=== PATIENT | female | born 1985 | race Asian ===

== ENCOUNTER 2024-05-29 07:25 | Outpatient (CLI) | payer OTHER, SELFPAY ==
--- NOTE | 2024-05-29 | ECHO_ITS ---
Patient Info Name: Kirsten Hinojosa Age: 38 years : 1985 Gender: Female Ht: 51 in Wt: 126 lbs BSA: 1.47 m2 HR: 79 bpm BP: 128 / 74 mmHg Technical Quality: Fair Exam Date: 05/29/2024 8:00 AM Exam Location: Echo Lab Patient Status: Outpatient Admit Date: 05/29/2024 Staff Ordering Physician: Vu Reyes MD Customer Care Assistant: Andrew Jones RDCS Attending Provider: Vu Reyes MD Referring Physician: Eric MOSQUEDA; Exam Type: CA echo doppler color flow Study Info Indications - cardiac murmur Complete two-dimensional, color flow and Doppler transthoracic echocardiogram is performed. Summary 1. Complete two-dimensional, color flow and Doppler transthoracic echocardiogram is performed. 2. Left ventricular chamber dimension is normal. 3. Left ventricular systolic function is normal, estimated at 60-65%. 4. The left ventricular diastolic function is normal. 5. E/e' 6 is not elevated. 6. There is trace tricuspid valve regurgitation. 7. RVSP is not calculated due to an inadequate TR jet. Left Ventricle E/e' 6 is not elevated. Left ventricular chamber dimension is normal. Left ventricular systolic function is normal, estimated at 60-65%. The left ventricular diastolic function is normal. Right Ventricle Right ventricular systolic function is normal and with normal TAPSE 2.3 cm. Right ventricular chamber dimension is normal. Left Atria Left atrial chamber dimension is normal. Right Atria Right atrial chamber dimension is normal. Aortic Valve The aortic valve is trileaflet. There is no aortic valve stenosis. There is no aortic valve regurgitation. Pulmonic Valve There is no pulmonic regurgitation. Mitral Valve There is no mitral valve stenosis. There is no mitral valve regurgitation. Tricuspid Valve There is trace tricuspid valve regurgitation. RVSP is not calculated due to an inadequate TR jet. Pericardium/Pleural There is no pericardial effusion. Inferior Vena Cava Normal inferior vena cava with >50% collapse upon inspiration consistent with normal right atrial pressure, 5 mmHg. Aorta The aortic root size at the sinus of Valsalva is normal. Left Ventricular Outflow Tract Name Value Normal LVOT 2D LVOT Diameter 1.8 cm LVOT Doppler LVOT Peak Gradient 7 mmHg LVOT Mean Gradient 4 mmHg LVOT VTI 31 cm LVOT VTI/AV VTI Ratio 1.0 LVOT Stroke Volume 76 ml LVOT CO 5.1 l/min LVOT CI 3.5 l/min/m2 Pulmonic Valve Name Value Normal RVOT Doppler RVOT Peak Gradient 5 mmHg PV Doppler PV Peak Gradient 7 mmHg Mitral Valve Name Value Normal MV Doppler MV Decel [place] 621 cm/s2 MV PHT 47 ms MV Area (PHT) 4.7 cm2 4.0-5.0 MV Diastolic Function MV E Peak Velocity 101 cm/s MV A Peak Velocity 66 cm/s MV E/A 1.5 MV Decel Time 162 ms MV Annular TDI MV E/e' (Septal) 9.2 <=8.0 MV E/e' (Lateral) 5.6 <=8.0 MV E/e' (Average) 7.4 Tricuspid Valve Name Value Normal Estimated PAP/RSVP RA Pressure 5 mmHg <=5 Aorta Name Value Normal Ascending Aorta Ao Root Diameter (MM) 2.6 cm Ao Root Diam Index (MM) 1.8 cm/m2 Aortic Valve Name Value Normal AV Doppler AV Peak Velocity 153 cm/s AV Peak Gradient 9 mmHg AV Mean Gradient 5 mmHg AV VTI 33 cm AV Area (Cont Eq VTI) 2.3 cm2 >=3.0 AV Area (Cont Eq Kirk) 2.1 cm2 AV Regurgitation 2D LVOT Area 2.4 cm2 Ventricles Name Value Normal LV Dimensions 2D/MM IVS Diastolic Thickness (2D) 0.9 cm 0.6-1.0 LVID Diastole (2D) 4.2 cm 3.8-5.2 LVIW Diastolic Thickness (2D) 0.9 cm 0.6-0.9 LVID Systole (2D) 2.6 cm 2.2-3.5 LVOT Diameter 1.8 cm LV Mass (2D Cubed) 115.61 g 67.00-162.00 LV Mass Index (2D Cubed) 79 g/m2 43-95 Relative Wall Thickness (2D) 0.42 LV Fractional Shortening/Ejection Fraction 2D/MM LV Fractional Shortening (2D) 37 % 27-45 LV EF (2D Teichadelaidaz) 67 % 54-74 LV Diastolic Volume (4C MOD) 75 ml LV EF (4C MOD) 79 % LV Diastolic Volume (2C MOD) 55 ml LV EF (2C MOD) 62 % LV Diastolic Volume (BP MOD) 65 ml 46-106 LV Diastolic Volume Index (BP MOD) 44 ml/m2 29-61 LV Systolic Volume (BP MOD) 19 ml 14-42 LV Systolic Volume Index (BP MOD) 13 ml/m2 8-24 LV EF (BP MOD) 71 % 54-74 LV Diastolic Length (4C) 6.8 cm LV Systolic Length (4C) 5.4 cm LV Stroke Volume (4C MOD) 59 ml Atria Name Value Normal LA Dimensions LA Dimension (MM) 2.5 cm 2.7-3.8 LA Volume (4C A-L) 30 ml LA Volume (BP A-L) 37 ml RA Dimensions RA Area (4C) 6.5 cm2 <=18.0 Report Signatures
--- OUTSIDE RECORDS SUMMARY | 2024-06-05 05:16 | XMS_ITS | Data Portability ---
Author Organization [facility] UMANGJeanne Robles Address [address] [place] [address] Assessment No assessment recorded. Plan of Treatment Reminders Order Date Submit Date Provider Last Modified By Organization Details Last Modified Time Details Appointments None recorde d. Lab urinaly sis, dipstic k 2020 021 [id number] In-Office Order, Internal Use Only DO Not Attach Compendium DO Not Attach Compendium, Do Not Delete/merge, [id number] 1 13:11:35 HbA1c (hemogl obin A1c), blood 2021 022 [facility], [address] [place] [address], [address], [place], [address], 2 04:20:22 lipid panel, serum 2022 023 [facility] [address] [facility], [place], [address], 3 17:50:31 HbA1c (hemogl obin A1c), blood 2022 023 [facility], [address] [facility] [address] [facility], [place], [address], 3 17:50:31 Referral physica l therapi st referra l - please evaluat e and treat, patient respond ed well to active myofasc ial release in clinic; discuss posture and stretch es/exer cises 2020 021 [facility] (Outpatient Physical Therapy), [address], [place], [address], 2 08:58:37 Procedures None recorde d. Surgeries None recorde d. Imaging None recorde d. Medication Orders Miralax 17 gram/do se oral powder 2021 022 [id number] [facility] [address] [place], [address], 3 17:22:04 Prepara tion H Hydroco rtisone 1 % topical cream 2021 022 [id number] [facility] [address] [place], [address], 3 17:22:06 clotrim azole 1 % topical cream [id number] [facility] [address] [place], [address], 2 17:10:06 omepraz ole 20 mg capsule ,delaye d release [id number] [place], [address], 3 17:22:00 Patient TargetsNo targets recorded. Patient Instructions Encounter Date Encounter Id Patient Instructions Last Modified By Organization Details Last Modified Time 05/15/2021 [id number] I was present and available in the Family Medicine clinic to discuss this patient's care during the appointment. I agree with the resident's assessment and plan as documented. [email or web address] Not available 05/15/2021 17:27:55 08/17/2021 [id number] I was present and available in the family medicine clinic to discuss the patient's care during the appointment and the case was discussed with me.?? I agree with the resident's assessment and plan as documented.?? HL [email or web address] Not available 08/20/2021 22:30:25 10/15/2021 [id number] hemorrhoids: care instructions [email or web address] Not available 10/15/2021 17:19:02 I was present and available in the Family Medicine clinic to discuss this patient's care for the duration of the appointment. I agree with the resident's assessment and plan as documented with the following addendum: None. Dr. Luis M Sheikh MD Faculty Physician, [facility] [email or web address] Not available 10/19/2021 11:33:55 03/26/2022 [id number] I was present and available in the family medicine clinic to discuss the patient's care during the appointment and the case was discussed with me.?? I agree with the resident's assessment and plan as documented.?? HL [email or web address] Not available 03/29/2022 15:11:53 11/04/2022 [id number] I was present and available in the Family Medicine clinic to discuss this patient's care for the duration of the appointment. I agree with the resident's assessment and plan as documented with the following addendum: None. Dr. Nevin Mackey MD Attending Physician, [facility]. [email or web address] Not available 11/22/2022 23:17:50 Reason for Referral Physical Therapist Referral for Spasm chronic pain/spasm of right trapezius, right neck, right lower back please evaluate and treat, patient responded well to active myofascial release in clinic; discuss posture and stretches/exercises Referring Physician: Ganga Marrero, Desktop Support Technician, Encounter Date: 05/15/2021 Results Created Date Observation Date Name Description Value Unit Range Abnormal Flag Note LastModifiedBy Organization Detail LastModifiedTime 05/15/2005/15/2021 urina lysis , dipst ick Leukocytes Negati ve Not Available In-Office Order Internal Use Only DO Not Attach Compendium DO Not Attach Compendium, Do Not Delete/merge, [id number] 05/15/2021 09:34:10 05/15/20 21 05/15/2021 urina lysis , dipst ick Nitrite negati ve Not Available In-Office Order Internal Use Only DO Not Attach Compendium DO Not Attach Compendium, Do Not Delete/merge, [id number] 05/15/2021 09:34:10 05/15/20 21 05/15/2021 urina lysis , dipst ick Urobilinogen .2 Not Available In-Of fice Order Internal Use Only DO Not Attach Compendium DO Not Attach Compendium, Do Not Delete/merge, [id number] 05/15/2021 09:34:10 05/15/20 21 05/15/2021 urina lysis , dipst ick Protein Negati ve Not Available In-Office Order Internal Use Only DO Not Attach Compendium DO Not Attach Compendium, Do Not Delete/merge, [id number] 05/15/2021 09:34:10 05/15/20 21 05/15/2021 urina lysis , dipst ick pH 6.5 Not Available In-Office Order Internal Use Only DO Not Attach Compendium DO Not Attach Compendium, Do Not Delete/merge, [id number] 05/15/2021 09:34:10 05/15/20 21 05/15/2021 urina lysis , dipst ick Blood Modera te Not Available In-Office Order Internal Use Only DO Not Attach Compendium DO Not Attach Compendium, Do Not Delete/merge, [id number] 05/15/2021 09:34:10 05/15/20 21 05/15/2021 urina lysis , dipst ick Specific [place] 1.010 Not Available In-Off ice Order Internal Use Only DO Not Attach Compendium DO Not Attach Compendium, Do Not Delete/merge, [id number] 05/15/2021 09:34:10 05/15/20 21 05/15/2021 urina lysis , dipst ick Ketone Negati ve Not Available In-Office Order Internal Use Only DO Not Attach Compendium DO Not Attach Compendium, Do Not Delete/merge, [id number] 05/15/2021 09:34:10 05/15/20 21 05/15/2021 urina lysis , dipst ick Bilirubin Negati ve Not Available In-Office Order Internal Use Only DO Not Attach Compendium DO Not Attach Compendium, Do Not Delete/merge, [id number] 05/15/2021 09:34:10 05/15/20 21 05/15/2021 urina lysis , dipst ick Glucose Negati ve Not Available In-Office Order Internal Use Only DO Not Attach Compendium DO Not Attach Compendium, Do Not Delete/merge, [id number] 05/15/2021 09:34:10 05/15/20 21 05/15/2021 urina lysis , dipst ick Appearance Clear Not Available In-Offi ce Order Internal Use Only DO Not Attach Compendium DO Not Attach Compendium, Do Not Delete/merge, [id number] 05/15/2021 09:34:10 05/15/20 21 05/15/2021 urina lysis , dipst ick Color Pale Yellow Not Available In-Office Order Internal Use Only DO Not Attach Compendium DO Not Attach Compendium, Do Not Delete/merge, [id number] 05/15/2021 09:34:10 10/29/19 22 10/29/2021 HEMOG LOBIN A1C hemoglobin A1C 5.4 % <5.7 ADA GUIDE LINES 2010 5.7 TO 6.4% INCRE ASED RISK OF DIABE LONNY > OR = 6.5% CONSI STENT WITH DIABE LONNY Not Available [facility] (Lab) [address] [facility], [place], [address], 10/29/2021 04:20:22 10/29/19 22 10/29/2021 HEMOG LOBIN A1C estimated average glucose, haydee 108 mg/dL Not Available [facility] (Lab) [address] [facility], [place], [address], 10/29/2021 04:20:22 06/16/19 22 nm hepat obili bora scan w/GB eject ion fract ion [facility] [id number] EXAMIN ATION: NUCLEA R MEDICI NE CHOLES CINTIG LINDSEY WITH EJECTI ON FRACTI ON ACCESS ION: [id number] EXAM DATE: 022 8:00 AM REASON FOR EXAM: Right sided abdomi nal pain COMPAR JUAN DIEGO: None TECHNI QUE: 4.9 millic uries techne tium 99m Cholet ec was inject ed intrav enousl y. Imagin g of the abdome n was obtain ed in anteri or projec tion over a one hour period . After confir enio small bowel activi ty, 8 ounces fatty meal of Ensure admini stered orally . Additi onal imagin g of the abdome n was obtain ed for evalua tion of ejecti on fracti on. FINDIN GS: Liver uptake is seen within 5 minute s. Gallbl adder uptake is seen within 15 minute s. Small bowel uptake is seen by 30 minute s. Gallbl adder ejecti on fracti on measur es 58 percen t. IMPRES CATRACHITA: 1. Normal hepato biliar y scinti graphy and ejecti on fracti on. 2. Gallbl adder ejecti on fracti on measur es 58 percen t. Ordere d By: ROCIO COLMENARES Electr onical ly Signed By: Rory Charles on 11:11 AM Interp reted By: Rory Charles, 11:[address], [address], 06/16/2021 13:08:10 Result Notes None recorded. Problems Name Problem SNOMED Code Status Onset Date Resolution Date Notes Provider Name and Address Organization Details Recorded Time Past history of gestational diabetes mellitus 807836576 Active 2020 JOHNNY Bejarano [facility] 2 14:04:40 Chronic pain 66117944 Completed 202003/24/2021 JOHNNY Bejarano - [facility] 1 16:36:28 Hemorrhoids 40945059 Active 2021 JOHNNY Bejarano [facility] 2 14:04:40 Gastroesoph ageal reflux disease 769638182 Active 2021 JOHNNY Beajrano [facility] 2 14:04:40 Problem Notes None recorded. Procedures Surgical History Date Name Laterality Status Provider Name and Address Organization Details Recorded Time 5 section completed Ganga TURNER - [facility] 11/04/2020 14:53:52 Imaging Results Imaging Date Name Status LastModified by Organization Details LastModified Time 06/16/2021 nm hepatobiliary scan w/GB ejection fraction completed [id number] [facility] [address], [place], [address], 06/16/2021 13:08:10 Procedure Notes None recorded. Medical Equipment None Reported. Allergies No known drug allergies Medications Name Sig Start Date Stop Date Status Note LastModified by Organization Details LastModified Time amoxicill in 500 mg capsule TAKE 2 CAPSULES BY MOUTH TWICE DAILY FOR 14 DAYS 10/15 completed Not Available Not Available Not Available Preparati on H Hydrocort isone 1 % topical cream APPLY A THIN LAYER TO THE AFFECTED AREA(S) BY TOPICAL ROUTE 2 TIMES PER DAY 11/04 completed Not Available Not Available Not Available Miralax 17 gram/dose oral powder Take 17 g every day by oral route. 11/04 completed Not Available Not Available Not Available clarithro mycin 500 mg tablet TAKE 1 TABLET BY MOUTH TWICE DAILY 10/15 completed Not Available Not Available Not Available omeprazol e 40 mg capsule,d elayed release TAKE 1 CAPSULE BY MOUTH ONCE DAILY BEFORE A MEAL 10/15 completed Not Available Not Available Not Available amoxicill in 875 mg tablet TAKE 1 TABLET BY MOUTH EVERY 12 HOURS UNTIL GONE 11/04 completed Not Available Not Available Not Available amitripty line 25 mg tablet Take 1 tablet every day by oral route in the evening for 30 days. 03/24 completed Stopped taking due to resoluti on of the pain. Not Available Not Available Not Available omeprazol e 20 mg capsule,d elayed release TAKE 1 CAPSULE BY MOUTH ONCE DAILY 11/04 completed Not Available Not Available Not Available clotrimaz ole 1 % topical cream APPLY TO THE AFFECTED AND SURROUND ING AREA(S) OF SKIN TWICE DAILY IN THE MORNING AND THE EVENING 10/15 completed Not Available Not Available Not Available dicyclomi ne 10 mg capsule 10/15 completed Not Available Not Available Not Available multivita min 11/04 completed Not Available Not Available Not Available Vitals Date Recorded Body height Body mass index (BMI) Body weight Body temperature Heart rate Oxygen saturation Oxygen saturation in Arterial blood by Pulse oximetry Systolic blood pressure Diastolic blood pressure Provider Name and Address Organization Details Last Updated DateTime 1 149.86 cm 24.1 kg/m2 51526.6 4 g 98.7 [degF] 73 /min 99 % 99 % 112 mm[Hg] 68 mm[Hg] Mague Kumar MA [place] - [facility] 1 09:09:09 Date Recorded Body height Heart rate Respiratory rate Body temperature Oxygen saturation Oxygen saturation in Arterial blood by Pulse oximetry Body mass index (BMI) Body weight Systolic blood pressure Diastolic blood pressure Provider Name and Address Organization Details Last Updated DateTime 2 149.86 cm 76 /min 18 /min 98.4 [degF] 98 % 98 % 23.9 kg/m2 67444.3 5 g 118 mm[Hg] 68 mm[Hg] Vinicius Ye MA [facility] 2 17:21:46 Date Recorded Body height Heart rate Oxygen saturation Oxygen saturation in Arterial blood by Pulse oximetry Body temperature Respiratory rate Body mass index (BMI) Body weight Systolic blood pressure Diastolic blood pressure Provider Name and Address Organization Details Last Updated DateTime 2 149.86 cm 67 /min 99 % 99 % 98.4 [degF] 18 /min 23.1 kg/m2 36774.6 8 g 110 mm[Hg] 64 mm[Hg] Ventura Fonseca [facility] 2 16:53:21 Date Recorded Body height Body mass index (BMI) Body weight Heart rate Body temperature Oxygen saturation Oxygen saturation in Arterial blood by Pulse oximetry Systolic blood pressure Diastolic blood pressure Provider Name and Address Organization Details Last Updated DateTime 2 149.86 cm 23.8 kg/m2 88695.9 g 71 /min 98.3 [degF] 99 % 99 % 110 mm[Hg] 70 mm[Hg] Nilam Rodriguez CMA [place] - [facility] 2 14:23:16 Date Recorded Body height Body mass index (BMI) Body weight Heart rate Oxygen saturation Oxygen saturation in Arterial blood by Pulse oximetry Body temperature Systolic blood pressure Diastolic blood pressure Provider Name and Address Organization Details Last Updated DateTime 3 149.86 cm 24.3 kg/m2 13973.8 3 g 61 /min 99 % 99 % 97.8 [degF] 107 mm[Hg] 58 mm[Hg] Ness Veloz MA [place] - [facility] 3 16:45:08 Social History Question Answer Notes LastModified by Organizat ion Details LastModified Time Tobacco Smoking Status Never Smoker Segun Jose CMA null, [place] - [facility] 11/04/2020 14:38:03 What Is Your Level Of Alcohol Consumption? None Information not available 11/04/2020 What Was The Date Of Your Most Recent Tobacco Screening? 11/04/2022 [email or web address] Information not available 11/04/2022 Do You Use Any Illicit Or Recreational Drugs? No Information not available 11/04/2020 Do You Or Have You Ever Used Any Other Forms Of Tobacco Or Nicotine? No Information not available 11/04/2020 Sex: Unknown Functional Status None recorded. Mental Status None recorded. Family History Relationship Description Onset Age of this Age Resolved Age Notes LastModified by Organization Details LastModified Time Mother Diabetes mellitus [email or web address] Not available 2020 14:53:03 Father Diabetes mellitus [email or web address] Not available 2020 14:53:12 Medical History No medical history recorded. Gynecological HistoryNo gynecological history recorded. Obstetrics History GPAL:G 3 P 1 0 2 1 Type Value Full Term 1 Spontaneous 2 Living 1 Total 3 Immunizations Vaccine Type Date Status Note Provider Nam e and Address Organization Details Recorded Time COVID-19, mRNA, LNP-S, PF, 30 mcg/0.3 mL dose 09/06/2020 completed Ganga Marrero [place], [place] [facility] 03/26/2022 14:03:43 COVID-19, mRNA, LNP-S, PF, 30 mcg/0.3 mL dose 09/29/2020 mckay Marrero [place], [place] [facility] 03/26/2022 14:03:43 COVID-19, mRNA, LNP-S, PF, 30 mcg/0.3 mL dose 05/22/2021 [email or web address] [place], [place] - [facility] 03/26/2022 14:03:43 Tdap 06/06/2013 completed Ganga Marrero nic, [place] - [facility] 11/04/2022 17:25:58 Influenza, split virus, quadrivalent, PF 03/26/2022 completed Elli Mcconnell MD Attn: Accounting,[address] [facility], [place], [address], [facility] 03/29/2022 15:11:32 Past Encounters Encounter ID Performer Location Encounter Start Date Encounter Closed Date Diagnosis/Indication Diagnosis SNOMED-CT Code Diagnosis ICD10 Code [id number] Tashi Jay MD [address] [address] 11/04/2020 14:22:12 11/06/2020 09:51:43 Adult health examination 594208206 Z00.00 Past pregn kedar history of gestational diabetes mellitus 704671411 Z86.32 [id number] Luis M walsh MD [address] [address] 03/13/2021 16:51:11 03/16/2021 09:02:35 Chronic pain 57123632 G89.29 Abdominal pain 88456737 R10.9 [id number] Ronni Szymanski MD [address] [address] 05/15/2021 08:51:25 05/18/2021 10:31:33 Dysuria 03840804 R30.9 Spasm 29979996 R25.2 [id number] [facility] [address] [place] [address] 08/17/2021 16:40:08 08/25/2021 07:22:33 Hemorrhoids 49379918 K64.9 Constipation 47904295 K5 9.00 [id number] [facility] [address] [address] 10/15/2021 16:43:26 10/19/2021 09:11:03 Hemorrhoids 16456295 K64.9 Gastroesop hageal reflux disease 681734775 K21.9 Past pregn kedar history of gestational diabetes mellitus 447258397 Z86.32 [id number] Elli ge MD [facility] [address] [address] 03/26/2022 13:51:37 03/30/2022 15:09:06 Active or passive immunization 165254351 Z23 [facility] 45883765 R25.2 [id number] NEVIN MACKEY MD [facility] [address] [address] 11/04/2022 16:11:26 11/08/2022 08:33:02 Hyperlipidemia screening 311621662 Z13.220 Past pregn kedar history of gestational diabetes mellitus 313611008 Z86.32 Mass of neck 827017210 R 22.1 Health Concerns Section Related Observation LastModified by Organization Detai ls LastModified Time None Recorded Concern Status LastModified by Organization Details LastModified Time None Recorded Advance Directives Directive None Recorded Payers Encounter Date Sequence Insurance Name Policy Number Policy Ricardo Covered Member ID Ricardo Member ID Guarantor Name 05/15/2021 1 [employer] [place] [id number] Kirsten Hinojosa [id number] Kirsten Hinojosa 08/17/2021 1 [employer] [place] [id number] Kirsten Hinojosa [id number] Kirsten Hinojosa 10/15/2021 1 [employer] [place] [id number] Kirsten Hinojosa [id number] Kirsten Hinojosa 03/26/2022 1 [employer] [place] [id number] Kirsten Hinojosa [id number] Kirsten Hinojosa 11/04/2022 1 [employer] [place] [id number] Kirsten Hinojosa [id number] Kirsten Hinojosa Notes Date Note Type Note Provider Name and Address Organization Details Recorded Time 05/15/2021 text/html 35 y/o F present s for follow up of chronic intermittent right-sided muscle pain in the right lower back/flank. Described as pinching. Having back pain nearly daily, with pain in other areas about twice a week. Tried ibuprofen with some relief. Stretching helped after last visit but has not been doing this recently. Ronni Szymanski MD Attn: Accounting, [address] [place], [address], [facility] 05/15/2021 17:28:00 08/17/2021 text/html Pt presents to clinic for 2 month history of rectal itching. Pt also reports noticing a bump in the area. Pt states her looked at the area and also noticed discoloration. No history of hemorrhoids. Reports intermittent constipation. Denies blood in stools or when wiping. Denies abdominal pain Elli Mcconnell MD Attn: Accounting, [address] [place], [address], [facility] 08/20/2021 22:30:29 10/15/2021 text/html 36 y/o F present s for wellness exam and follow up of hemorrhoids. She used preparation H and clotrimazole which resolved the itching but itching has returned. She has not tried sitz baths. She was treated for H. pylori by GI and her abdominal symptoms have resolved. Still has mild GERD symptoms when not taking omeprazole. Continues to take 20 mg dose. Luis M Sheikh MD Attn: Accounting, [address] [place], [address], [facility] 10/19/2021 11:33:59 03/26/2022 text/html 36 y/o F present s for pain on right side of her body including the head, right side of the back and right leg. This has happened in the past and resolved on its own. 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 The current pain has been going on for about 2 months. It happens intermittently. She has tried tylenol 500 mg for it which does not seem to help much. Denies any injuries, associated nausea, photophobia, phonophobia, weakness, numbness. Elli Mcconnell MD Attn: Accounting, [address] [place], [address], [facility] 03/29/2022 15:11:57 11/04/2022 text/html 37 yo F presents for routine exam. She is doing well. She has noticed a spot on the right side of her neck for the past year that is not painful. She would like it checked again because her recently had a neck mass that came up. NEVIN MACKEY MD Attn: Accounting[address] [place], [address], [facility] - [facility] 11/22/2022 23:17:54 OBGyn Episode No OBEpisode recorded.
== END 2024-05-29 07:26 | disposition home or self-care (01) ==
PROVIDERS: PCP Emergency Medicine; Visit Provider Emergency Medicine
DX: R01.1 Cardiac murmur, unspecified (principal)
CPT/HCPCS: 93306